=== PATIENT | male | born 1960 | race African-American/Black ===

== ENCOUNTER 2016-10-03 20:32 | Emergency (ER) | payer OTHER ==
[~2016-10-03] VITALS: Ht 175.3 cm; Wt 68.0 kg
--- NOTE | ~2016-10-03 | CT2 ---
[facility] A Service of [facility] / [facility] RADIOLOGY TEXT RESULTS PATIENT: MELANIE PHELPS LOCATION: [facility] : 58 UNIT #: [id number] AGE: [address]: Chidi Wellington MD SEX: M ORDER DR: [id number] [facility]. [place], [place] [address] [id number] E MR#: [id number] #: [id number] NAME: MELANIE PHELPS : 1960 SEX: M STUDY DATE/TIME: 10/03/2016 23:59 UNIT: [facility] ROOM: STUDY DESCRIPTION: CT Abd and Pelv W Cont Attending Physician: Chidi Wellington M.D. Ordering Physician: Chidi Wellington M.D. Primary Care Physician: No Primary Care Physician MEDICAL IMAGING REPORT This report is preliminary unless electronic signature is present EXAM CT abdomen and pelvis with IV contrast HISTORY Low abdomen pain and vomiting for [address] exam was performed with one or more of the following radiation dose reduction techniques: automatic exposure control, adjustment of mA and/or kV according to patient size, and iterative reconstruction. FINDINGS CT abdomen and pelvis was performed with IV contrast. CT abdomen: The liver, gallbladder, spleen, pancreas, kidneys, and adrenal glands are normal. Normal caliber abdominal aorta. No ascites. Dilatation of small bowel in the left upper quadrant measuring 3.7 cm in diameter and the right lower quadrant measuring up to 4.4 cm. The remainder of the small bowel caliber and the colonic caliber are normal. Normal caliber abdominal aorta. No ascites. 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 Dilatation of small bowel in the central pelvis measuring up to 4.1 cm. No colonic dilatation. No free fluid. Urinary bladder is normal. IMPRESSION 1. Multifocal dilatation of small bowel in the abdomen and pelvis without focal transition point. Findings favor small bowel ileus. No colonic dilatation. 2. No free fluid or inflammatory changes in the abdomen or pelvis. 3. Normal appendix. [facility] A Service of [facility] / [facility] RADIOLOGY TEXT RESULTS PATIENT: MELANIE PHELPS LOCATION: [facility] : 58 UNIT #: [id number] AGE: [address]: Chidi Wellington MD SEX: M ORDER DR: Dictated by... Gurdeep Black M.D. THIS IS AN ELECTRONICALLY VERIFIED REPORT Gurdeep Black M.D. at 10/04/2016 10:27 PM CRISTY/dillon TD: 10/04/2016 11:57 JOB #: [id number] MEDICAL IMAGING REPORT Page 1 of 1 COPY
[2016-10-03 22:36] LABS: BASOPHIL% 0.2 % (0-2.5); HEMATOCRIT 44.9 % (38.0-50.0); HEMOGLOBIN 15.1 gm/dL (13.0-16.0); LYMPHOCYTE# 1.1 X10e3 (1.0-3.5); LYMPHOCYTE% 8.2 % (17.0-45.0); MEAN CELL VOLUME 96.6 FL (83-96); MEAN CORPUSCULAR HEMOGLOBIN 32.5 PG (28-34); MEAN CORPUSCULAR HGB CONC 33.6 g/dL (30-36); MEAN PLATELET VOLUME 8.6 FL (6.5-11.5); MONOCYTE# 0.3 X10e3 (0-1.0); MONOCYTE% 2.5 % (3.0-12.0); NEUTROPHIL# 12.4 X10e3 (1.5-7.1); NEUTROPHIL% 89.1 % (40-75); PLATELET COUNT 239 X10e3 (140-420); RED BLOOD COUNT 4.65 X10e (3.90-5.60); RED CELL DISTRIBUTION WIDTH 13.8 % (11.0-15.5); WHITE BLOOD COUNT 13.9 X10e3 (4.0-10.5)
[2016-10-03 22:38] LABS: DIFF IND NO
[2016-10-03 23:05] LABS: ALBUMIN SERUM 4.6 g/dL (3.5-5.0); BILIRUBIN, DIRECT 0.2 mg/dL (0.0-0.2); BILIRUBIN,TOTAL 1.2 mg/dL (0.2-2.0); BUN/CREATININE RATIO 15.55; CALCIUM SERUM 9.7 mg/dL (8.4-10.2); CREATININE SERUM 0.9 mg/dL (0.6-1.4); GLOM FILT RATE Estimated 110.3 mL/min (>60); POTASSIUM 3.6 mmol/L (3.5-5.1); PROTEIN TOTAL SERUM 8.4 g/dL (6.0-8.3)
[2016-10-04 01:12] LABS: URINE SOURCE CLEAN CATCH
[2016-10-04 01:17] LABS: URINE APPEARANCE CLEAR; URINE BILIRUBIN NEG (NEG); URINE BLOOD NEG (NEG); URINE COLOR YELLOW; URINE GLUCOSE NEG (NEG); URINE KETONE 2+ (NEG); URINE LEUKOCYTE ESTERASE NEG (NEG); URINE NITRATE NEG (NEG); URINE PH 5.5 (5-8); URINE PROTEIN TRACE (NEG); URINE SPECIFIC GRAVITY 1.064 (1.003-1.035); URINE UROBILINOGEN 0.2 MG/DL (NEG)
[2016-10-04 01:26] LABS: CULTURE INDICATED? NO
== END 2016-10-04 02:36 | disposition home or self-care (01) ==
LOC: CED 20:32
DX: K56.7 Ileus, unspecified (principal); F17.200 Nicotine dependence, unspecified, uncomplicated
CPT/HCPCS: 36415; 74177; 80048; 80076; 81003; 83690; 85025; 96361; 96374; 96375; 99284; C9113; J2270; J2405; Q9967